=== PATIENT | female | born 1960 | race Caucasian/White ===

== ENCOUNTER 2019-12-30 19:10 | Emergency (ER) | payer OTHER ==
[~2019-12-30] VITALS: Ht 167.6 cm; Wt 90.0 kg
[2019-12-30] MEDS ORDERED: IV RINGERS SOLUTION,LACTATED 1,000 ML IV SCH (19:26)
[2019-12-30] MEDS ORDERED: ACETAMINOPHEN 500 MG TABLET PO ONE (19:30)
--- NOTE | 2019-12-30 19:32 | PHYS DOC ---
Past History Past Medical History: Cancer, Other Past Medical History Multiple myeloma Adult General Chief Complaint Chief Complaint: FEVER ... " I had a fever... I had it before I started taking my Multple Myleoma meds again.. about 5 days ago.. I ve been coughing.. but nothing coming up.. I guess I passed out in the shower... and busted my chin open.. and messed up my lower teeth..." HPI HPI Patient is a 59 year old female who presents with above hx and complaints of fever which started approximately 5 days ago. Patient has had recent history of multiple myeloma and completed a course of IV suppression at [facility]. Patient now periodically gets doses of oral medications which she cycles every month. Patient does not know the medication. Patient states she has been somewhat dizzy lately. Patient does not do flu vaccinations. No recent travel or specific ill contacts. Patient has a 8 cm laceration to lower chin and has fractured her lower teeth, 27, 26, 25, 23. appears below the gum. Patient has good bite on posterior molars. Pt. does not remember symptoms prior to fall. Patient currently requesting discharge even before completing repair of laceration. My plan was admit or transfer. However pt insistent on discharge. Begged pt. to reconsider her decision to leave. spoke with her repeatedly employing her to stay. Pt. did agree to laceration repair and would stay for potassium replace and IV antibiotics. Pt. insistent on discharge. Review of Systems Review of Systems Constitutional: Complaints of fever or chills [] Eyes: Denies change in visual acuity, redness, or eye pain [] HENT: Denies nasal congestion or sore throat []. The patient complaints of facial laceration and fracture to teeth Respiratory: Complaints of shortness of breath [] Cardiovascular: No additional information not addressed in HPI [] GI: Denies abdominal pain, nausea, vomiting, bloody stools or diarrhea [] : Denies dysuria or hematuria [] Musculoskeletal: Denies back pain or joint pain [] Integument: Denies rash or skin lesions [] Neurologic: Denies headache, focal weakness or sensory changes []Hx. of Syncope Endocrine: Denies polyuria or polydipsia [] All other systems were reviewed and found to be within normal limits, except as documented in this note. Family History Family History No current family members are ill Current Medications Current Medications See nursing for home medications Allergies Allergies No known drug allergies Physical Exam Physical Exam Constitutional: In acute distress, non-toxic appearance. HENT: Normocephalic, chin laceration 8 cm, fractured teeth 26,25,24,23, bilateral external ears normal, oropharynx moist, no oral exudates, nose normal. Eyes: PERRLA, EOMI, conjunctiva normal, no discharge. Neck: Normal range of motion, no tenderness, supple, no stridor. Cardiovascular: Tachycardia Heart rate regular rhythm, no murmur Lungs & Thorax: Bilateral breath sounds with apex with scattered wheezes, rhonchi and crackles on auscultation Abdomen: Bowel sounds normal, soft, no tenderness, no masses, no pulsatile masses. Obese Skin: Warm, dry, no erythema, no rash. Back: No tenderness, no CVA tenderness. Extremities: No tenderness, no cyanosis, no clubbing, ROM intact, no edema. Neurologic: Alert and oriented X 3, normal motor function, normal sensory function, no focal deficits noted. Psychologic: Affect anxious, judgement poor insight to her disease process, mood depressed EKG EKG My interpretation EKG shows a sinus rhythm at 89 bpm. Has contour abnormality in anterior lateral leads. Prolonged QT interval at 420 ms QTc interval is 522 ms[] Radiology/Procedures Radiology/[place] [address] IMAGING REPORT Signed PATIENT: YAYA ANDRES ACCOUNT: [id number] : 1960 LOCATION: ER AGE: 59 SEX: F EXAM STATUS: REG ER ORD. PHYSICIAN: ASHLEY SUTHERLAND MD REASON: Fall PROCEDURE: CT HEAD AND CERVICAL SPINE WO Exam: CT head, face and cervical spine INDICATION: Fall, maxillary injury TECHNIQUE: Sequential axial images through the head, face and cervical spine were obtained without the administration of IV contrast. Comparisons: None FINDINGS: Head: No focal parenchymal lesion or hemorrhage is identified. There is no midline shift or sulcal effacement. No acute vascular territory infarction is identified. Valdovinos-white distinction is preserved. The ventricular system is within normal limits without compression hydrocephalus. The basal cisterns are well maintained. Face: Globes and intraorbital contents are normal. The visualized portions of the paranasal sinuses and mastoid air cells are well-pneumatized. Periapical lucency surrounding the first and second mandibular incisors which are angulated posteriorly. Cervical spine: Vertebral body heights and alignment are well-maintained. Fracture to the cervical spine is not identified. Mild degenerative disc disease noted throughout cervical spine with bilateral facet arthropathy seen diffusely. Visualized paraspinal soft tissues are unremarkable. IMPRESSION: 1. Posterior angulation of the central mandibular incisors with periapical lucency, which may relate to fracture at the root. Correlate with physical exam. 2. No acute intracranial abnormality. 3. Negative CT C-spine for acute traumatic injury. Exposure: One or more of the following in the visualized dose reduction techniques were utilized for this examination: 1. Automated exposure control 2. Adjustment of the MA and/or KV according to patient size Use of iterative of reconstructive technique Electronically signed by: Raquel Martinez MD (12/30/2019 9:28 PM) [id number] DICTATED AND SIGNED BY: RAQUEL MARTINEZ MD DATE: 12/30/192127 CC: ASHLEY SUTHERLAND MD; PCP,UNKNOWN ~ [][place] [address] IMAGING REPORT Signed PATIENT: YAYA ANDRES ACCOUNT: [id number] : 1960 LOCATION: ER AGE: 59 SEX: F EXAM STATUS: REG ER ORD. PHYSICIAN: ASHLEY SUTHERLAND MD REASON: Fall, Hx multiple myeloma, Fevers, pain PROCEDURE: CT CHEST ABDOMEN PELVIS WO Exam: CT of chest, abdomen and pelvis without contrast INDICATION: Fall, history of multiple myeloma TECHNIQUE: Sequential axial images through the chest, abdomen and pelvis obtained without IV contrast. Sagittal and coronal reformatted images were reconstructed from the axial data and reviewed. Comparisons: Chest x-ray same day FINDINGS: Visualized portion of the thyroid are unremarkable. No enlarged mediastinal lymph nodes are identified. Heart size is normal. No pericardial effusion. Mild coronary artery calcifications. Thoracic aorta has a normal course and caliber. Pulmonary artery is not enlarged. Airways are patent. There are several focal rounded areas of consolidation noted diffusely throughout the lungs bilaterally. No pneumothorax. No pleural effusion or thickening. Evaluation of the solid organs is limited secondary to noncontrast technique. Hypoattenuating lesion within the inferior right hepatic lobe measuring approximately 1.9 cm incompletely characterized on noncontrast study. Spleen, pancreas, gallbladder and adrenals are unremarkable. No perinephric inflammation or hydronephrosis. No renal or ureteral calculi are identified. Bladder is distended and appears thin-walled. Uterus is nonenlarged. No abnormal adnexal mass. Large and small bowel are unremarkable. Appendix is not identified. No free intra-abdominal air or fluid. No obstruction. Abdominal aorta has a normal course and caliber. No enlarged intra-abdominal lymph nodes are identified. No suspicious osseous lesions or acute fractures. IMPRESSION: 1. Scattered focal areas of consolidation within the lungs bilaterally greatest at the lung bases, may be infectious or inflammatory in etiology. Consider atypical infectious processes. No discrete pulmonary mass identified. 2. No acute process identified within the abdomen or pelvis. 3. No sequela of acute traumatic injury identified within the chest, abdomen or pelvis. Exposure: One or more of the following in the visualized dose reduction techniques were utilized for this examination: 1. Automated exposure control 2. Adjustment of the MA and/or KV according to patient size 3. Use of iterative of reconstructive technique Electronically signed by: Raquel Martinez MD (12/30/2019 9:19 PM) [id number] DICTATED AND SIGNED BY: RAQUEL MARTINEZ MD DATE: 12/30/192118 CC: ASHLEY SUTHERLAND MD; PCP,UNKNOWN ~ Course & Med Decision Making Course & Med Decision Making Pertinent Labs and Imaging studies reviewed. (See chart for details) Pt. insistent on discharge. Informed pt. her decision was very risky and could result in her . Procedure note- laceration repair- chin laceration 8 cm.. Clean laceration with soap and water. Betadine applied to edge wound. Injected edge of wound,as well as base of teeth 26, 25, 24 and 23 with 2% lidocaine. Reirrigated laceration with normal saline. Closed laceration with 3 Vicryl 4-0 with 6 - 4-0 Prolene. Lower teeth repositioned. Patient keep laceration clean and dry. Apply Polysporin up 4 times a day. She did maintain a liquid diet. Patient follow-up with dentist and oral surgeon. Sutures out in 5 days. Critical care Impression: 1. Syncope 2. Head Injury 3. Fever 4. Fracture Teeth 26,25,24,23 5. Hx. Multiple, myeloma 6. Leukopenia 3.6 7. Thrombocytopenia 115 8. Multiple electrolyte abnormalities- hyponatremia 126, hypokalemia 2.2, chloride 90, CO2 18, BUN 53, creatinine 2.9. 9. Elevated sedimentation rate 35 10. Ellevated d-dimer 4.16 11. Viral Syndrome with Neg. Flu swab 12. Pneumonia 13. Diarrhea 14. Dehydration 11. Hypo-magnesium 1.5 12. Elevated AST 45 13. Elevated CK289 14. Malnutrition albumin 2.7 [] Dragon Disclaimer Dragon Disclaimer This electronic medical record was generated, in whole or in part, using a voice recognition dictation system. Departure Departure: Disposition: HOME/RESIDENCE PRIOR TO ADM Condition: STABLE Referrals: PCP,UNKNOWN (PCP) Scripts Metronidazole (FLAGYL) 500 Mg Tablet 500 MG PO TID for diarrhea for 10 Days, #30 TAB Prov: ASHLEY SUTHERLAND MD 12/31/19 Cephalexin (KEFLEX) 500 Mg Capsule 1 CAP PO TID for dental injury, pneumonia for 7 Days, #21 CAP 0 Refills Prov: ASHLEY SUTHERLAND MD 12/31/19 Azithromycin (AZITHROMYCIN TABLET) 250 Mg Tablet 250 MG PO DAILY for ANTI-BIOTIC for 5 Days, #5 TAB 0 Refills Prov: ASHLEY SUTHERLAND MD 12/31/19 Albuterol Sulfate (VENTOLIN HFA INHALER) 18 Gm Hfa.aer.ad 2 PUFF IH PRN Q4HRS PRN for FOR ASTHMA for 30 Days, INHALER 0 Refills Prov: ASHLEY SUTHERLAND MD 12/31/19 Dragon Disclaimer This chart was dictated in whole or in part using Voice Recognition software in a busy, high-work load, and often noisy Emergency Department environment. It may contain unintended and wholly unrecognized errors or omissions. ASHLEY SUTHERLAND MD Dec 30, 2019 19:32
[2019-12-30 19:54] LABS: BASO % 0 % (0-3); EOS % 0 % (0-3); HEMATOCRIT 39.1 % (36.0-47.0); HEMOGLOBIN 13.3 g/dL (12.0-15.5); LYMPH # 0.4 x10^3/uL (1.0-4.8); LYMPH % 12 % (24-48); MEAN CORPUSCULAR HEMOGLOBIN 28 pg (25-35); MEAN CORPUSCULAR HGB CONC 34 g/dL (31-37); MEAN CORPUSCULAR VOLUME 83 fL (79-100); MONO # 0.2 x10^3/uL (0.0-1.1); MONO % 4 % (0-9); NEUT % 83 % (31-73); PLATELET COUNT 115 x10^3/uL (140-400); RED BLOOD COUNT 4.72 x10^6/uL (3.50-5.40); RED CELL DISTRIBUTION WIDTH 17.7 % (11.5-14.5); WHITE BLOOD COUNT 3.6 x10^3/uL (4.0-11.0)
--- NOTE | 2019-12-30 20:06 | RAD ---
Exam: Chest one view INDICATION: Fever TECHNIQUE: Frontal view of the chest Comparisons: None FINDINGS: The cardiomediastinal silhouette and pulmonary vessels are within normal limits. Rounded areas of opacification noted within the lungs bilaterally with patchy areas of consolidation at the right lung base. Partially visualized pathologic fracture at the right humerus IMPRESSION: 1. Patchy airspace disease at the left lung base. 2. Rounded opacities within the lungs bilaterally favored represent pulmonary masses. Electronically signed by: Sunshine Zuluaga MD (12/30/2019 8:03 PM) [id number]
[2019-12-30] MEDS ORDERED: LIDOCAINE 2% 20 ML VIAL. IJ ONE (20:15)
[2019-12-30] MEDS ORDERED: IV RINGERS SOLUTION,LACTATED 1,000 ML IV ONE ×2 (20:15→22:00)
[2019-12-30 20:28] LABS: INFLUENZA A PATIENT NEGATIVE (NEGATIVE); INFLUENZA B PATIENT NEGATIVE (NEGATIVE)
[2019-12-30 20:29] LABS: ALBUMIN 2.7 g/dL (3.4-5.0); ALK PHOS 54 U/L (46-116); ALT (SGPT) 19 U/L (14-59); ANION GAP 18 (6-14); AST (SGOT) 45 U/L (15-37); BLOOD UREA NITROGEN 53 mg/dL (7-20); CALCIUM 7.8 mg/dL (8.5-10.1); CARBON DIOXIDE 18 mmol/L (21-32); CHLORIDE 90 mmol/L (98-107); CREATININE 2.9 mg/dL (0.6-1.0); DIRECT BILIRUBIN 0.4 mg/dL (0.0-0.2); GFR 16.7; GLUCOSE 105 mg/dL (70-99); LIPASE 235 U/L (73-393); MAGNESIUM 1.5 mg/dL (1.8-2.4); SODIUM 126 mmol/L (136-145); TOTAL PROTEIN 6.1 g/dL (6.4-8.2)
[2019-12-30 20:38] LABS: POTASSIUM 2.2 mmol/L (3.5-5.1)
[2019-12-30] MEDS ORDERED: cefTRIAXone SODIUM 1 GM VIAL ONE (20:39)
[2019-12-30] MEDS ORDERED: IV NORMAL SALINE 50ML 50 ML ONE (20:39)
[2019-12-30 20:48] LABS: % BANDS 35 % (0-9); % LYMPHS 8 % (24-48); % MONOS 2 % (0-10); % SEGS 55 % (35-66)
[2019-12-30 20:49] LABS: ANISOCYTOSIS SLIGHT; PLT ESTIMATE DECREASED (ADEQUATE)
--- NOTE | 2019-12-30 21:22 | RAD ---
Exam: CT of chest, abdomen and pelvis without contrast INDICATION: Fall, history of multiple myeloma TECHNIQUE: Sequential axial images through the chest, abdomen and pelvis obtained without IV contrast. Sagittal and coronal reformatted images were reconstructed from the axial data and reviewed. Comparisons: Chest x-ray same day FINDINGS: Visualized portion of the thyroid are unremarkable. No enlarged mediastinal lymph nodes are identified. Heart size is normal. No pericardial effusion. Mild coronary artery calcifications. Thoracic aorta has a normal course and caliber. Pulmonary artery is not enlarged. Airways are patent. There are several focal rounded areas of consolidation noted diffusely throughout the lungs bilaterally. No pneumothorax. No pleural effusion or thickening. Evaluation of the solid organs is limited secondary to noncontrast technique. Hypoattenuating lesion within the inferior right hepatic lobe measuring approximately 1.9 cm incompletely characterized on noncontrast study. Spleen, pancreas, gallbladder and adrenals are unremarkable. No perinephric inflammation or hydronephrosis. No renal or ureteral calculi are identified. Bladder is distended and appears thin-walled. Uterus is nonenlarged. No abnormal adnexal mass. Large and small bowel are unremarkable. Appendix is not identified. No free intra-abdominal air or fluid. No obstruction. Abdominal aorta has a normal course and caliber. No enlarged intra-abdominal lymph nodes are identified. No suspicious osseous lesions or acute fractures. IMPRESSION: 1. Scattered focal areas of consolidation within the lungs bilaterally greatest at the lung bases, may be infectious or inflammatory in etiology. Consider atypical infectious processes. No discrete pulmonary mass identified. 2. No acute process identified within the abdomen or pelvis. 3. No sequela of acute traumatic injury identified within the chest, abdomen or pelvis. Exposure: One or more of the following in the visualized dose reduction techniques were utilized for this examination: 1. Automated exposure control 2. Adjustment of the MA and/or KV according to patient size 3. Use of iterative of reconstructive technique Electronically signed by: Sunshine Zuluaga MD (12/30/2019 9:19 PM) [id number]
[2019-12-30 21:28] LABS: SEDIMENTATION RATE 35 (0-25)
--- NOTE | 2019-12-30 21:31 | RAD ---
Exam: CT head, face and cervical spine INDICATION: Fall, maxillary injury TECHNIQUE: Sequential axial images through the head, face and cervical spine were obtained without the administration of IV contrast. Comparisons: None FINDINGS: Head: No focal parenchymal lesion or hemorrhage is identified. There is no midline shift or sulcal effacement. No acute vascular territory infarction is identified. Valdovinos-white distinction is preserved. The ventricular system is within normal limits without compression hydrocephalus. The basal cisterns are well maintained. Face: Globes and intraorbital contents are normal. The visualized portions of the paranasal sinuses and mastoid air cells are well-pneumatized. Periapical lucency surrounding the first and second mandibular incisors which are angulated posteriorly. Cervical spine: Vertebral body heights and alignment are well-maintained. Fracture to the cervical spine is not identified. Mild degenerative disc disease noted throughout cervical spine with bilateral facet arthropathy seen diffusely. Visualized paraspinal soft tissues are unremarkable. IMPRESSION: 1. Posterior angulation of the central mandibular incisors with periapical lucency, which may relate to fracture at the root. Correlate with physical exam. 2. No acute intracranial abnormality. 3. Negative CT C-spine for acute traumatic injury. Exposure: One or more of the following in the visualized dose reduction techniques were utilized for this examination: 1. Automated exposure control 2. Adjustment of the MA and/or KV according to patient size Use of iterative of reconstructive technique Electronically signed by: Sunshine Zuluaga MD (12/30/2019 9:28 PM) [id number]
[2019-12-30 21:39] LABS: BARBITURATES NEG (NEG); BENZODIAZEPINES NEG (NEG); CANNABINOIDS NEG (NEG); COCAINE NEG (NEG); METHADONE NEG (NEG); OPIATES NEG (NEG); PHENCYCLIDINE NEG (NEG)
[2019-12-30 21:43] LABS: AMPHETAMINE/METHAMPHETAMINE NEG (NEG)
[2019-12-30 21:49] LABS: BILIRUBIN,URINE NEG (NEG); CLARITY,URINE CLOUDY; COLOR,URINE YELLOW; GLUCOSE,URINE NEG (NEG)
[2019-12-30 21:50] LABS: AMORPHOUS SEDIMENT,UR PRESENT /HPF; BACTERIA,URINE FEW /HPF (0-FEW); GRANULAR CASTS,URINE OCC /HPF; HYALINE CASTS, URINE OCC /HPF; NITRITE,URINE NEG (NEG); RBC,URINE OCC /HPF (0-2); SQUAMOUS EPITHELIAL CELL,UR MOD /LPF; UROBILINOGEN,URINE 0.2 mg/dL (0.2 mg/dL); WBC,URINE OCC /HPF (0-4)
[2019-12-30] MEDS ORDERED: POTASSIUM CHLORIDE 20MEQ 100 ML IV SCH (22:15)
[2019-12-30] MEDS ORDERED: SODIUM BICARB ADULT 8.4% 50 MEQ/50 ML DISP.SYRIN. IV ONE (22:30)
[2019-12-30] MEDS ORDERED: SODIUM BICARBONATE 50 MEQ/50 ML VIAL. ONE (23:01)
[2019-12-30] MEDS: POTASSIUM CHLORIDE 10MEQ 100 ML IV SCH (23:30)
--- NOTE | 2019-12-30 23:57 | EKG ---
[address] [address] Test Date: 2019-12-30 Test Time: 19:44:55 Pat Name: YAYA ANDRES Department: Room: Gender: F Clinical Marketing Manager: : 1960 Requested By: ASHLEY SUTHERLAND Order Number: [id number] Reading MD: Measurements Intervals [place] Rate: 89 P: 35 DC: 180 QRS: 73 QRSD: 106 T: 33 QT: 428 QTc: 522 Interpretive Statements SINUS RHYTHM QRS(T) CONTOUR ABNORMALITY CONSIDER ANTEROLATERAL MYOCARDIAL DAMAGE CONSIDER INFERIOR MYOCARDIAL DAMAGE PROLONGED QT POSSIBLY ABNORMAL ECG RI6.01 No previous ECG available for comparison
[2019-12-31] MEDS: POTASSIUM CHLORIDE 10MEQ 100 ML IV SCH ×2 (00:30→01:30)
[2019-12-31] MEDS ORDERED: POTASSIUM CHLORIDE 20 MEQ TABLET.ER. PO ONE ×2 (01:30→01:36)
[2019-12-31] MEDS ORDERED: TETANUS AND DIPHTHERIA TOX/PF 0.5 ML VIAL. VAX IM ONE (01:30)
[2019-12-31] MEDS ORDERED: ALBU2.5V8 IH (01:47)
[2019-12-31] MEDS ORDERED: METR500T PO (01:47)
[2019-12-31] MEDS ORDERED: AZIT250T6 PO (01:47)
[2019-12-31] MEDS ORDERED: CEPH-264 PO (01:47)
[2019-12-31 02:00] VITALS: BP 135/69
[2019-12-31] MEDS ORDERED: AZITHROMYCIN 250 MG TABLET. PO ONE (02:00)
== END 2019-12-31 02:03 | disposition left against medical advice (07) ==
LOC: ER 19:10
DX: S02.5XXA Fracture of tooth (traumatic), initial encounter for closed fracture (principal); S01.81XA Laceration without foreign body of other part of head, initial encounter; R55 Syncope and collapse; D72.819 Decreased white blood cell count, unspecified; D69.6 Thrombocytopenia, unspecified; E87.1 Hypo-osmolality and hyponatremia; E87.6 Hypokalemia; R70.0 Elevated erythrocyte sedimentation rate; R79.1 Abnormal coagulation profile; B34.9 Viral infection, unspecified; J18.9 Pneumonia, unspecified organism; E86.0 Dehydration; E83.42 Hypomagnesemia; R79.89 Other specified abnormal findings of blood chemistry; Z85.79 Personal history of other malignant neoplasms of lymphoid, hematopoietic and related tissues; W18.39XA Other fall on same level, initial encounter; Y93.89 Activity, other specified; Y92.89 Other specified places as the place of occurrence of the external cause; Y99.8 Other external cause status
CPT/HCPCS: 12015; 36415; 70450; 70486; 71045; 71250; 72125; 74176; 80048; 80076; 80307; 81001; 82553; 83605; 83690; 83735; 83880; 84443; 84484; 85007; 85025; 85379; 85610; 85651; 85730; 87040; 87070; 87493; 87804; 87880; 93005; 94640; 96361; 96365; 96366; 96367; 96375; 99285; J0456; J0696; J3480; J3490; J7120; 87205; J2001

== ENCOUNTER 2020-01-04 18:18 | Emergency (ER) | payer OTHER ==
[~2020-01-04 18:18] MED LIST: ALBU2.5V8 IH; AZIT250T6 PO; CEPH-264 PO; METR500T PO
--- NOTE | 2020-01-04 18:39 | PHYS DOC ---
Past History Past Medical History: Cancer, Other Additional Past Medical Histor: multiple myeloma Past Medical History Limited secondary to cardiopulmonary arrest Past Surgical History: No Surgical History Past Surgical History Limited secondary to cardiopulmonary arrest Smoking: Non-smoker Alcohol Use: Occasionally Drug Use: None Social History Limited secondary to cardiopulmonary arrest Adult General Chief Complaint Chief Complaint: Cardiopulmonary Arrest HPI HPI 59-year-old female presents via EMS in cardiopulmonary arrest. Patient had been found without pulse at 1730. ACLS protocol initiated by EMS. 6 rounds of epi given prior to arrival. EMS utilized Ajit mechanical compression device and placed Igel airway and right tibial IO prior to arrival. EMS reports rhythm throughout was asystole. Reports blood glucose 280. Patient without return of spontaneous circulation during EMS resuscitative efforts. Patient had recently been evaluated in ED at [facility] on 12/30/19. Patient has history of multiple myeloma and had per [employer] review of ED note had received IV suppression therapy at [facility]. Patient had undergone syncopal episode with laceration to anterior chin and dental fracture. Workup performed had noted patient with concern for infectious process with WBC 3.6 and 35% bands. Patient was also febrile with CT imaging of scattered consolidations within the lungs bilaterally at lung bases. Patient also found to be significantly hypokalemic at 2.2. Patient had been urged to be admitted or transferred but patient had refused and elected to go home on oral antibiotics. History of present illness limited due to cardiopulmonary arrest. Review of Systems Review of Systems Review of systems limited secondary to cardiopulmonary arrest Allergies Allergies Allergies Coded Allergies Type Severity Reaction Last Updated Verified No Known Allergies Allergy Unknown 12/30/19 Yes Physical Exam Physical Exam Constitutional: Well developed, obese HENT: Normocephalic, anterior chin with repaired laceration- sutures intact, oropharynx with EMS placed I-gel airway Eyes: Pupils dilated and nonreactive, conjunctiva normal Neck: Trachea midline, supple Cardiovascular: Absent pulse to left carotid and left femoral on palpation Lungs & Thorax: Bilateral breath sounds coarse on auscultation with equal chest rise and fall with bag valve mask, no spontaneous respirations Abdomen: Soft, mild distention Skin: Cool, dry, no erythema Extremities: No deformity, trace edema to BLE Neurologic: GCS 3, unresponsive EKG EKG [] Radiology/Procedures Radiology/Procedures [] Course & Med Decision Making Course & Med Decision Making Patient with past medical history of multiple myeloma and recent ER visit status post syncopal episode for which she was seen at [facility] ER on 12/30/2019 presents via EMS in cardiopulmonary arrest. EMS reports found without pulse at 1730. ACLS protocol initiated with 5 rounds of epi prior to arrival. Patient's blood sugar 280. Utilized Ajit mechanical respirations and had placed I-gel airway and right tibial IO prior to arrival. Full COVID-19 precautions utilized as patient's most recent ED visit was concerning for infectious pr ocess. EMS reports no rhythm change during resuscitative efforts (asystole). ACLS continued upon arrival with additional 2 round of epi administered. Patient without return of spontaneous circulation. Time of called at 1827 (57 min down). A brief [employer] review was performed with notation that patient was previously found with Leukopenia of 3.6 with 35% bands, lactic acid 1.4, hyponatremia at 126, hypokalemia at 2.2, BUN/Creat 53/2.9 and D-dimer of 4.16. Rapid influenza and rapid strep/throat culture negative. Cdiff negative. Blood cultures reported 1 out of 2 bottles grew gram positive cocco-bacilli. CT imaging with "scattered focal areas of consolidation within lungs bilaterally..... may be infectious or inflammatory in etiology." Patient had been advised to be admitted, but refused despite family or physician requests patient decided to be discharge home. Patient did undergo laceration repair, potassium replacement and IV antibiotics. Patient was given empiric antibiotics upon discharge AMA of Flagyl, Keflex, and Azithromycin. Spouse notified by myself of patient's . State Commissioning Agent notified regarding. Requests to order Viral Respiratory Panel and COVID-19 testing postmortem. Of note: Full PPE protection utilized including [id number], face shield, jump suit covering head and feet, and two sets of gloves. Dragon Disclaimer Dragon Disclaimer This electronic medical record was generated, in whole or in part, using a voice recognition dictation system. Departure Departure: Impression: Primary Impression: Cardiopulmonary arrest Disposition: 20 Condition: Referrals: PCP,NO (PCP) Critical Care Time Critical care time was 30 minutes which includes time at bedside, spent in discussion of patient's care with specialists and/or family members, with interpretation of laboratory and/or radiological studies and is exclusive of procedures. NIKI TORRES DO Jan 04, 2020 18:39
[2020-01-04] MEDS ORDERED: EPINEPHrine SYRINGE 1 MG/10 ML SYRINGE ONE (18:45)
[2020-01-04] MEDS ORDERED: EPINEPHrine SYRINGE 1 MG/10 ML SYRINGE IV ONE (18:45)
== END 2020-01-04 22:05 | disposition expired ==
LOC: ER 18:18
DX: I46.9 Cardiac arrest, cause unspecified (principal); Z85.79 Personal history of other malignant neoplasms of lymphoid, hematopoietic and related tissues
CPT/HCPCS: 92950; 99285; J0171